=== PATIENT | female | born 1970 | race Caucasian/White ===

== ENCOUNTER 2018-03-26 06:31 | Emergency (ER) | payer BC ==
--- NOTE | 2018-03-26 06:51 | ER Document Report ---
ED Extremity Problem, Lower <ANTHONY CUELLAR - Last Filed: 03/26/18 07:29> - General Mode of Arrival: Ambulatory Information source: Patient TRAVEL OUTSIDE OF THE [place] IN LAST 30 DAYS: No <JULISA BATES - Last Filed: 03/26/18 13:03> - General Chief Complaint: Foot Injury Stated Complaint: FOOT INJURY Time Seen by Provider: 03/26/18 06:43 Notes: Patient is a 47 year old female with HTN and asthma presents to the emergency department complaining of right heel pain onset yesterday around 1500. Patient states she jumped into the 3ft deep end of a in-ground concrete pool after her granddaughter jumped in head first. She states she landed directly on her right heel with most of her weight which caused immediate pain. (JULISA BATES) - Related Data Allergies/Adverse Reactions: iodine [Iodine] Allergy (Verified 03/26/18 06:33) Past Medical History - General Information source: Patient - Social History Smoking Status: Unknown if Ever Smoked Family History: Reviewed & Not Pertinent - Past Medical History Cardiac Medical History: Reports: Hx Hypertension Pulmonary Medical History: Reports: Hx Asthma Renal/ Medical History: Reports: Hx Kidney Stones Past Surgical History: Reports: Hx Section - x2, Hx Tubal Ligation - Immunizations Hx Diphtheria, Pertussis, Tetanus Vaccination: Yes <JULISA BATES - Last Filed: 03/26/18 13:03> Review of Systems - Review of Systems Constitutional: No symptoms reported EENT: No symptoms reported Cardiovascular: No symptoms reported Respiratory: No symptoms reported Gastrointestinal: No symptoms reported Genitourinary: No symptoms reported Female Genitourinary: No symptoms reported Musculoskeletal: See HPI Skin: No symptoms reported Hematologic/Lymphatic: No symptoms reported Neurological/Psychological: No symptoms reported -: Yes All other systems reviewed and negative <JULISA BATES - Last Filed: 03/26/18 13:03> Physical Exam - General General appearance: Appears well, Alert In distress: None - HEENT Head: Normocephalic, Atraumatic Eyes: Normal Conjunctiva: Normal Extraocular movements intact: Yes Pupils: PERRL Neck: Normal - Respiratory Respiratory status: No respiratory distress - Extremities General upper extremity: Normal ROM General lower extremity: Normal ROM Foot: Tender - Calcaneous exquistely tender from medial and lateral aspect as well as plantar surface., Other - Metarasals and tarsals not tender to palpation. Medial and lateral ankle not tender to palpation.. No: Edema - Neurological Neuro grossly intact: Yes Cognition: Normal Orientation: AAOx4 Rodney Coma Scale Eye Opening: Spontaneous Rodney Coma Scale Verbal: Oriented Leland Coma Scale Motor: Obeys Commands Leland Coma Scale Total: 15 Speech: Normal - Psychological Associated symptoms: Normal affect, Normal mood - Skin Skin Temperature: Warm Skin Moisture: Dry Skin Color: Normal <JULISA BATES - Last Filed: 03/26/18 13:03> - Vital signs Vitals: Temp Pulse Resp BP Pulse Ox 98.7 F 85 20 137/77 H 97 03/26/18 06:35 03/26/18 06:35 03/26/18 06:35 03/26/18 06:35 03/26/18 06:35 Course - Diagnostic Test Radiology reviewed: Image reviewed, Reports reviewed - Right foot x-ray does not show bony injury <ANTHONY CUELLAR - Last Filed: 03/26/18 07:29> - Vital Signs Vital signs: Temp Pulse Resp BP Pulse Ox 98.0 F 86 18 138/91 H 98 03/26/18 07:50 03/26/18 07:50 03/26/18 07:50 03/26/18 07:50 03/26/18 07:50 Discharge <ALISAANTHONY - Last Filed: 03/26/18 07:29> <PAULO,JULISA - Last Filed: 03/26/18 13:03> - Discharge Clinical Impression: Contusion of right heel Qualifiers: Encounter type: initial encounter Qualified Code(s): S90.31XA - Contusion of right foot, initial encounter Condition: Stable Disposition: HOME, SELF-CARE Additional Instructions: Contusion: Your injury has resulted in a contusion -- a crushing of the deep tissues. No injury to important structures was detected during the physician's exam. Contusions vary in the amount of pain they cause, and in the length of time required for healing. Typically, the area will become bruised, and will remain painful to touch for two or three weeks. However, most patients are back to working and playing within a few days. After the initial period of rest and cold-packs, your symptoms (together with the doctor's recommendations) will determine how rapidly you can get back to full activity. Usually this means "do what feels okay, but don't do things that hurt." If re-examination was recommended, it's important to follow up as instructed. Call the doctor or return any time if pain increases, if swelling becomes severe, if you develop numbness or weakness in an injured extremity, or if any other alarming symptoms occur. Use the crutches to limit weightbearing on the right foot for a few days. Elevate the foot as much as possible. Take ibuprofen 800 mg every 8 hours, or Aleve 2 tablets every 12 hours to help with the discomfort. Follow-up with your doctor or a local orthopedic doctor if not improving. RETURN TO THE EMERGENCY ROOM IF ANY NEW OR WORSENING SYMPTOMS. Referrals: [facility]WO[facility] PETTIT [Primary Care Provider] - Follow up as needed Scribe Attestation: 03/26/18 07:31 I personally performed the services described in the documentation, reviewed and edited the documentation which was dictated to the scribe in my presence, and it accurately records my words and actions. (ANTHONY CUELLAR) Scribe Documentation - Scribe Written by Ruth:: Ruth Hanson, 03/26/2018 07:12 acting as scribe for :: Alsia <JULISA BATES - Last Filed: 03/26/18 13:03>
--- NOTE | 2018-03-26 07:03 | RADIOLOGY REPORT (SQ) ---
EXAM DESCRIPTION: XR FOOT 3 OR MORE VIEWS CLINICAL HISTORY: 47 years Female, fell into pool COMPARISON: None. Findings: Moderate calcaneal enthesophytes, and bipartite tibial sesamoid. Bones, joints, and soft tissues of the XR RIGHT FOOT 3 VIEWS appear otherwise intact. IMPRESSION: No acute findings.
[2018-03-26 08:02] VITALS: BP 138/91
== END 2018-03-26 08:02 | disposition home or self-care (01) ==
LOC: ER 06:31
DX: S90.31XA Contusion of right foot, initial encounter (principal); M79.671 Pain in right foot; W16.532A Jumping or diving into swimming pool striking wall causing other injury, initial encounter; I10 Essential (primary) hypertension; J45.909 Unspecified asthma, uncomplicated
CPT/HCPCS: 99283

== ENCOUNTER → 2018-06-07 | Outpatient (CLI) | payer BC ==
--- NOTE | 2018-06-07 11:42 | WOMENS IMAGING REPORT ---
EXAM DESCRIPTION: 3D SCREENING MAMMO BILAT COMPLETED DATE/TIME: 06/07/2018 11:14 am REASON FOR STUDY: ROUTINE BILATERAL SCREENING;Z12.31 Z12.31 ENCNTR SCREEN MAMMOGRAM FOR MALIGNANT N EOPLASM OF SUNDAY COMPARISON: 2014 TECHNIQUE: Standard craniocaudal and mediolateral oblique views of each breast recorded using digita l acquisition and breast tomosynthesis. LIMITATIONS: None. FINDINGS: Findings present which are benign by mammographic criteria. No suspicious masses, calcifi cations or architectural distortion. Pertinent benign findings: Cyst left. Read with the assistance of CAD. .[facility] - R2 [employer] Version 1.3 .[facility] Imaging - R2 Cenova Version 1.3 .[facility] - R2 Cenova Version 2.4 .[facility] [place]2 Cenova Version 2.4 .[facility] - R2 [employer] Version 9.2 Benign mammographic findings may include one or more of the following: Smooth masses, popcorn/rim/co arse calcifications, asymmetries, post-procedure changes, and lesions with long-standing stability. IMPRESSION: BENIGN MAMMOGRAPHIC FINDINGS. BIRADS 2 BREAST DENSITY: b. There are scattered areas of fibroglandular density. BIRAD: 2 BENIGN FINDING(S) RECOMMENDATION: RECOMMENDATION: ROUTINE SCREENING COMMENT: The patient has been notified of the results by letter per MQSA requirements. Additional no tification policies are in place for contacting patient with suspicious or incomplete findings. Quality ID #[id number]: The [employer] recommends an annual screening mammogram for women aged 40 years or over. This facility utilizes a reminder system to ensure that all patients receive reminder letters, and/or direct phone calls for appointments. This includes reminders for routine scr eening mammograms, diagnostic mammograms, or other Breast Imaging Interventions when appropriate. Th is patient will be placed in the appropriate reminder system. The [employer] (ACR) has developed recommendations for screening MRI of the breast s in certain patient populations, to be used in conjunction with mammography. Breast MRI surveillanc e may be appropriate for women with more than 20% lifetime risk of developing breast cancer as deter mined by genetic testing, significant family history of the disease, or history of mantle radiation f or Hodgkins Disease. ACR Practice Guidelines 2008. DBT Technology DBT is a type of tomographic mammography. With conventional mammography, overlapping breast tissue ma y make lesions difficult to detect, even with good compression. DBT uses an x-ray tube that rotates a round the breast, taking images at different angles. These images are then combined to create thin sl ices of the breast that the radiologist can view as a 3D reconstruction. The Hologic unit can perform full-field digital mammograms (2D imaging); or DBT (3D imaging); or both, in a combination mode that quickly performs both the mammogram and the tomosynthesis scan while the breast is still compressed. PQRS 6045F: Fluoroscopic imaging is not utilized for breast tomosynthesis. TECHNICAL DOCUMENTATION: FINDING NUMBER: (1) ASSESSMENT: (1) JOB ID: [id number] [employer]- All Rights Reserved Reading location - IP/workstation name: [email or web address]
== END ==
LOC: WI 10:50
PROVIDERS: ATTEND Internal Medicine
DX: Z12.31 Encounter for screening mammogram for malignant neoplasm of breast (principal)
CPT/HCPCS: 77063; 77067